=== PATIENT | female | born 1935 | race Caucasian/White ===

== ENCOUNTER 2018-09-08 15:42 | Emergency (ER) | payer OTHER, BC ==
[2018-09-08] MEDS ORDERED: IBUPROFEN 400 MG TAB ONE (16:25)
--- NOTE | 2018-09-08 17:01 | RAD REPORT ---
EXAM DESCRIPTION: RAD - Ankle Right 3 View - 09/08/2018 4:28 pm CLINICAL HISTORY: Right ankle pain status post injury FINDINGS: No fracture or dislocation is seen.
--- NOTE | 2018-09-08 17:21 | EDPHYS ---
Physician Documentation [facility] Name: Geovanna Wilkes Age: 83 yrs Sex: Female : 1935 Arrival Date: 09/08/2018 Time: 15:47 Bed 23 Private MD: ED Physician Sam Monzon HPI: 09/08 17:10 This 83 yrs old Female presents to ER via Wheelchair with complaints of Ankle sola Injury. 17:10 The patient presents with decreased range of motion, pain, that is acute. The sola complaints affect the right ankle. Onset: The symptoms/episode began/occurred just prior to arrival. Context: The problem was sustained at home. Associated signs and symptoms: The patient has no apparent associated signs or symptoms. Modifying factors: The symptoms are alleviated by elevation of extremity, the symptoms are aggravated by weight bearing, movement. Severity of symptoms: At their worst the symptoms were mild, moderate, in the emergency department the symptoms are unchanged. The patient has not experienced similar symptoms in the past. Historical: - Allergies: 15:51 No Known Allergies; bp - Home Meds: 15:54 amlodipine 5 mg tab 1 tab once daily [Active]; levothyroxine 75 mcg tab 1 tab once bp daily [Active]; metoprolol succinate 25 mg oral Tb24 1 tab once daily [Active]; simvastatin 40 mg Oral tab 1 tab once daily [Active]; budesonide 3 mg oral CECX 1 caps once daily [Active]; losartan 100 mg oral tab 1 tab once daily [Active]; - PMHx: 15:51 Colitis; Hypertension; Thyroid problem; bp - Immunization history:: Adult Immunizations up to date. - Social history:: Smoking status: Patient/guardian denies using tobacco. - Ebola Screening: : No symptoms or risks identified at this time. - Family history:: not pertinent. ROS: 17:10 Constitutional: Negative for fever, chills, and weight loss, Eyes: Negative for injury, sola pain, redness, and discharge, ENT: Negative for injury, pain, and discharge, Neck: Negative for injury, pain, and swelling, Cardiovascular: Negative for chest pain, palpitations, and edema, Respiratory: Negative for shortness of breath, cough, wheezing, and pleuritic chest pain, Abdomen/GI: Negative for abdominal pain, nausea, vomiting, diarrhea, and constipation, Back: Negative for injury and pain, : Negative for injury, bleeding, discharge, and swelling, Skin: Negative for injury, rash, and discoloration, Neuro: Negative for headache, weakness, numbness, tingling, and seizure, Psych: Negative for depression, anxiety, suicide ideation, homicidal ideation, and hallucinations, Allergy/Immunology: Negative for hives, rash, and allergies, Endocrine: Negative for neck swelling, polydipsia, polyuria, polyphagia, and marked weight changes, Hematologic/Lymphatic: Negative for swollen nodes, abnormal bleeding, and unusual bruising. 17:10 MS/extremity: Positive for decreased range of motion, pain, swelling, of the right ankle and anterior aspect of right ankle. Exam: 17:10 Constitutional: This is a well developed, well nourished patient who is awake, alert, sola and in no acute distress. Head/Face: Normocephalic, atraumatic. Eyes: Pupils equal round and reactive to light, extra-ocular motions intact. Lids and lashes normal. Conjunctiva and sclera are non-icteric and not injected. Cornea within normal limits. Periorbital areas with no swelling, redness, or edema. ENT: Nares patent. No nasal discharge, no septal abnormalities noted. Tympanic membranes are normal and external auditory canals are clear. Oropharynx with no redness, swelling, or masses, exudates, or evidence of obstruction, uvula midline. Mucous membranes moist. Neck: Trachea midline, no thyromegaly or masses palpated, and no cervical lymphadenopathy. Supple, full range of motion without nuchal rigidity, or vertebral point tenderness. No Meningismus. Chest/axilla: Normal chest wall appearance and motion. Nontender with no deformity. No lesions are appreciated. Cardiovascular: Regular rate and rhythm with a normal S1 and S2. No gallops, murmurs, or rubs. Normal PMI, no JVD. No pulse deficits. Respiratory: Lungs have equal breath sounds bilaterally, clear to auscultation and percussion. No rales, rhonchi or wheezes noted. No increased work of breathing, no retractions or nasal flaring. Abdomen/GI: Soft, non-tender, with normal bowel sounds. No distension or tympany. No guarding or rebound. No evidence of tenderness throughout. Back: No spinal tenderness. No costovertebral tenderness. Full range of motion. Female : Normal external genitalia. Skin: Warm, dry with normal turgor. Normal color with no rashes, no lesions, and no evidence of cellulitis. Neuro: Awake and alert, GCS 15, oriented to person, place, time, and situation. Cranial nerves II-XII grossly intact. Motor strength 5/5 in all extremities. Sensory grossly intact. Cerebellar exam normal. Normal gait. Psych: Awake, alert, with orientation to person, place and time. Behavior, mood, and affect are within normal limits. 17:10 Musculoskeletal/extremity: Extremities: decreased ROM, pain, swelling, tenderness, ROM: limited active range of motion, limited passive range of motion, Circulation is intact in all extremities. Sensation intact. Compartment Syndrome exam of affected extremity: is normal. DVT Exam: negative Homans' sign noted on exam, no appreciated bluish discoloration, no erythema, no increased warmth, pain, swelling, tenderness. Vital Signs: 15:54 BP 138 / 67; Pulse 95; Resp 16; Temp 98; Pulse Ox 99% ; Weight 52.16 kg; Height 5 ft. 2 bp in. (157.48 cm); 17:15 BP 141 / 81; Pulse 86; Resp 17; Temp 98; Pulse Ox 99% ; rv 15:54 Body Mass Index 21.03 (52.16 kg, 157.48 cm) bp MDM: 15:57 Patient medically screened. [facility] 17:10 Data reviewed: vital signs, nurses notes, radiologic studies, plain films. [facility] 09/08 15:57 Order name: Ankle Right 3 View XRAY; Complete Time: 17:09 [facility] 09/08 15:57 Order name: Ice pack; Complete Time: 16:01 [facility] 09/08 17:10 Order name: Walking boot; Complete Time: 18:01 [facility] Administered Medications: 16:12 Not Given (Patient Refused): Fitzgerald 5 mg-325 mg 1 tabs PO once tw2 16:13 Drug: Motrin 400 mg Route: PO; tw2 18:01 Follow up: Response: Pain is decreased rv Disposition: 09/08/18 17:21 Discharged to Home. Impression: Sprain of ankle, Sprain of unspecified ligament of left ankle. - Condition is Stable. - Discharge Instructions: Ankle Sprain. - Prescriptions for Tylenol- Codeine #3 300-30 mg Oral Tablet - take 1 tablet by ORAL route every 4 hours As needed; 26 tablet. Motrin IB 200 mg Oral Tablet - take 1 tablet by ORAL route every 6 hours As needed as needed with food; 20 tablet. - Medication Reconciliation Form, Thank You Letter, Antibiotic Education, Prescription Opioid Use form. - Follow up: Private Physician; When: 2 - 3 days; Reason: Recheck today's complaints, Continuance of care, Re-evaluation by your physician. Follow up: Ramesh Rios MD; When: 2 - 3 days; Reason: Recheck today's complaints, Continuance of care, Re-evaluation by your physician. - Problem is new. - Symptoms have improved. Signatures: Dispatcher [employer] EDMS Sam Monzon MD MD cha Wise, Tara, RN RN tw2 Baltazar Stahl RN RN bp Abdiel Garcia, RN RN rv Corrections: (The following items were deleted from the chart) 18:03 17:21 09/08/2018 17:21 Discharged to Home. Impression: Sprain of ankle; Sprain of rv unspecified ligament of left ankle. Condition is Stable. Forms are Medication Reconciliation Form, Thank You Letter, Antibiotic Education, Prescription Opioid Use. Follow up: Private Physician; When: 2 - 3 days; Reason: Recheck today's complaints, Continuance of care, Re-evaluation by your physician. Follow up: Ramesh Rios; When: 2 - 3 days; Reason: Recheck today's complaints, Continuance of care, Re-evaluation by your physician. Problem is new. Symptoms have improved. sola
--- NOTE | 2018-09-08 17:21 | ER ---
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 Transition of care: bp patient was not received from another setting of care. Onset of symptoms was September 08, 2018 at 12:00. Risk Assessment: Do you want to hurt yourself or someone else? Patient reports no desire to harm self or others. Initial Sepsis Screen: Does the patient meet any 2 criteria? No. Patient's initial sepsis screen is negative. Does the patient have a suspected source of infection? No. Patient's initial sepsis screen is negative. Care prior to arrival: None. 15:50 Method Of Arrival: Wheelchair bp 15:50 Acuity: DESI 3 bp Historical: - Allergies: 15:51 No Known Allergies; bp - Home Meds: 15:54 amlodipine 5 mg tab 1 tab once daily [Active]; levothyroxine 75 mcg tab 1 tab once bp daily [Active]; metoprolol succinate 25 mg oral Tb24 1 tab once daily [Active]; simvastatin 40 mg Oral tab 1 tab once daily [Active]; budesonide 3 mg oral CECX 1 caps once daily [Active]; losartan 100 mg oral tab 1 tab once daily [Active]; - PMHx: 15:51 Colitis; Hypertension; Thyroid problem; bp - Immunization history:: Adult Immunizations up to date. - Social history:: Smoking status: Patient/guardian denies using tobacco. - Ebola Screening: : No symptoms or risks identified at this time. - Family history:: not pertinent. Screenin:19 Abuse screen: Denies threats or abuse. Nutritional screening: No deficits noted. tw2 Tuberculosis screening: No symptoms or risk factors identified. Fall Risk Secondary diagnosis (15 points) impaired mobility. Assessment: 16:20 General: Appears in no apparent distress. slender, well groomed, Behavior is calm, tw2 cooperative, appropriate for age. Pain: Complains of pain in right foot. Neuro: Level of Consciousness is awake, alert, obeys commands, Oriented to person, place, time, situation. Cardiovascular: Patient's skin is warm and dry. Respiratory: Airway is patent Respiratory effort is even, unlabored, Respiratory pattern is regular, symmetrical. GI: No signs and/or symptoms were reported involving the gastrointestinal system. : No signs and/or symptoms were reported regarding the genitourinary system. EENT: No signs and/or symptoms were reported regarding the EENT system. Musculoskeletal: Circulation, motion, and sensation intact. Swelling present in right foot. Vital Signs: 15:54 BP 138 / 67; Pulse 95; Resp 16; Temp 98; Pulse Ox 99% ; Weight 52.16 kg; Height 5 ft. 2 bp in. (157.48 cm); 17:15 BP 141 / 81; Pulse 86; Resp 17; Temp 98; Pulse Ox 99% ; rv 15:54 Body Mass Index 21.03 (52.16 kg, 157.48 cm) bp ED Course: 15:47 Patient arrived in ED. tw3 15:51 Triage completed. bp 15:54 Arm band placed on. bp 15:54 Bed in low position. Call light in reach. Adult w/ patient. Pulse ox on. NIBP on. Warm tw2 blanket given. 15:54 Ice pack to injury. tw2 15:56 Sam Monzon MD is Attending Physician. sola 16:09 Lary Purcell, RN is Primary Nurse. tw2 16:21 Report given to KENNY Lawton. tw2 16:25 Ankle Right 3 View XRAY In Process Unspecified. EDMS 17:13 Ramesh Rios MD is Referral Physician. sola 18:02 No provider procedures requiring assistance completed. Patient did not have IV access rv during this emergency room visit. Administered Medications: 16:12 Not Given (Patient Refused): Holbrook 5 mg-325 mg 1 tabs PO once tw2 16:13 Drug: Motrin 400 mg Route: PO; tw2 18:01 Follow up: Response: Pain is decreased rv Outcome: 17:21 Discharge ordered by . sola 18:02 Discharged to home via wheelchair, SHORT BOOT rv 18:02 Condition: good 18:02 Discharge instructions given to patient, family, Instructed on discharge instructions, follow up and referral plans. medication usage, Demonstrated understanding of instructions, follow-up care, medications, Prescriptions given X 2. 18:03 Patient left the ED. rv Signatures: Dispatcher [employer] EDSam Dunne MD MD cha Wise, Tara, RN RN tw2 Janessa Wilson tw3 Baltazar Stahl, RN RN Abdiel Tyler RN RN rv
== END 2018-09-08 18:03 | disposition home or self-care (01) ==
LOC: ER 15:42
DX: S93.401A Sprain of unspecified ligament of right ankle, initial encounter (principal); I10 Essential (primary) hypertension
CPT/HCPCS: 99284